=== PATIENT | female | born 1985 | race African-American/Black ===

== ENCOUNTER 2016-10-15 11:46 | Emergency (ER) | payer OTHER ==
[~2016-10-15] VITALS: Ht 152.4 cm; Wt 68.0 kg
[~2016-10-15 11:46] MED LIST: NAPROSYN500 MG PO; NOHOMEMEDICATIONS
[2016-10-15 11:50] VITALS: BP 126/74
[2016-10-15] MEDS ORDERED: PENICILLIN VK500 M1 PO (12:09)
[2016-10-15] MEDS ORDERED: CLARITIN10 MG PO (12:09)
== END 2016-10-15 12:24 | disposition home or self-care (01) ==
LOC: ER 11:46
DX: J30.9 Allergic rhinitis, unspecified (principal); J02.8 Acute pharyngitis due to other specified organisms; K04.7 Periapical abscess without sinus; Z98.890 Other specified postprocedural states

== ENCOUNTER 2018-05-24 23:17 | Emergency (ER) | payer OTHER ==
[~2018-05-24] VITALS: Ht 154.9 cm; Wt 71.2 kg
[~2018-05-24 23:17] MED LIST changes: +CLARITIN10 MG PO; +PENICILLIN VK500 M1 PO
[2018-05-24] MEDS ORDERED: BIRTH CONTROL PILL (23:45)
[2018-05-24 23:54] LABS: URINE BILIRUBIN NEGATIVE (Negative); URINE BLOOD 3+ (Negative); URINE CLARITY CLEAR; URINE COLOR YELLOW; URINE GLUCOSE-RANDOM* NEGATIVE (Negative); URINE KETONES NEGATIVE (Negative); URINE LEUKOCYTES-REFLEX TRACE (Negative); URINE NITRITE-REFLEX NEGATIVE (Negative); URINE PROTEIN (DIPSTICK) TRACE (Negative); URINE SPECIFIC GRAVITY 1.015 (1.005-1.035); URINE UROBILINOGEN 0.2 E.U./dl (0.2-1.0)
[2018-05-25 00:11] LABS: BACTERIA-REFLEX 1-9 Few /HPF (None Seen); CASTS None Seen /LPF (None Seen); CRYSTALS None Seen /LPF (None Seen); MUCUS 0-3 Light strn/LPF (None Seen); SQUAMOUS 4-10 Moderate /LPF (0-3); URINE WBC-REFLEX 0-5 Rare /HPF (0-5)
[2018-05-25 00:20] LABS: BASOPHILS 0.5 % (0.0-2.0); EOSINOPHILS 2.3 % (0.0-3.0); HEMATOCRIT 36.4 % (37.0-47.0); HEMOGLOBIN 12.5 gm/dL (12.0-15.0); LYMPHOCYTES 42.1 % (24.0-44.0); MCHC 34.2 g/dL (28.0-37.0); MCV 84.8 fL (80.0-100.0); MONOCYTES 9.9 % (1.0-8.0); PLATELET COUNT 279 thou/uL (150-400); POLYS 45.2 % (36.0-66.0); RDW 13.9 % (10.5-14.5); WBC 6.7 thou/uL (4.0-11.0)
[2018-05-25 00:27] LABS: CALCIUM 8.2 mg/dL (8.5-10.1); CREATININE 0.8 mg/dL (0.6-1.0); POTASSIUM 3.8 mmol/L (3.5-5.1)
[2018-05-25] MEDS ORDERED: TRANEXAMIC ACI650 MG PO (00:46)
[2018-05-25 01:05] VITALS: BP 101/62
== END 2018-05-25 01:06 | disposition home or self-care (01) ==
LOC: ER 23:17
PROVIDERS: Emergency Medicine; Physician Assistant
DX: N89.8 Other specified noninflammatory disorders of vagina (principal); R10.30 Lower abdominal pain, unspecified; R11.2 Nausea with vomiting, unspecified